=== PATIENT | female | born 1975 | race Hispanic/Latino ===

== ENCOUNTER 2024-03-07 11:30 | Emergency (ER) | payer BC ==
[~2024-03-07] VITALS: Ht 152.4 cm; Wt 82.4 kg
[2024-03-07] MEDS ORDERED: DEXAMETHASONE SOD PHOS 10 MG/1 ML VIAL IM STA (11:46)
[2024-03-07] MEDS ORDERED: LISINOPRIL10 MG PO (11:52)
[2024-03-07] MEDS ORDERED: DEXAMETHASONE SOD PHOS INJ 4 MG/ML SDV ONE (11:54)
[2024-03-07] MEDS: DEXAMETHASONE SOD PHOS INJ 4 MG/ML SDV IV STA (12:00)
[2024-03-07] MEDS: ACETAMINOPHEN 325 MG TAB PO STA (12:00)
[2024-03-07] MEDS ORDERED: TAMIFLU75 MG PO (12:09)
[2024-03-07] MEDS ORDERED: VENTOLIN HFA18 GM INH (12:09)
[2024-03-07 12:18] VITALS: PULSE 72; RESP 18; TEMP 98.7; O2SAT 97
== END 2024-03-07 12:18 | disposition home or self-care (01) ==
LOC: FSED 11:35
DX: R05.9 Cough, unspecified (principal); J10.1 Influenza due to other identified influenza virus with other respiratory manifestations; R53.81 Other malaise; Z11.52 Encounter for screening for COVID-19
CPT/HCPCS: 0223U; 83518; 87400; 96372; 99283; J1100 ×2